=== PATIENT | female | born 2000 | race African-American/Black ===

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

== ENCOUNTER 2021-02-08 17:39 | Emergency (ER) | payer SELFPAY ==
[~2021-02-08 17:39] MED LIST: SULF1TAB24 PO
[2021-02-09] MEDS ORDERED: MAGN296S68 PO (01:14)
== END 2021-02-08 18:38 | disposition left against medical advice (07) ==
LOC: ER 17:39
DX: R10.9 Unspecified abdominal pain (principal); Z53.21 Procedure and treatment not carried out due to patient leaving prior to being seen by health care provider

== ENCOUNTER 2021-02-08 23:14 | Emergency (ER) | payer SELFPAY ==
[~2021-02-08] VITALS: Ht 158.8 cm; Wt 52.3 kg
[2021-02-09 00:18] LABS: BILIRUBIN,URINE NEGATIVE (NEG); CLARITY,URINE CLEAR; COLOR,URINE YELLOW; NITRITE,URINE NEGATIVE (NEG); PROTEIN,URINE NEGATIVE (NEG-TRACE)
[2021-02-09 00:23] LABS: BACTERIA,URINE FEW /HPF (0-FEW); RBC,URINE 0 /HPF (0-2)
--- NOTE | 2021-02-09 01:08 | PHYS DOC ---
Past Medical History Past Medical History: Other Additional Past Medical Histor: BELLS PALSY, HEART CONDITION,TONSILITIS Past Surgical History: No Surgical History Smoking Status: Current Some Day Smoker Alcohol Use: None Drug Use: None General Adult EDM: Chief Complaint: ABDOMINAL PAIN HPI: HPI: Patient is a 20 year old female presents with a chief complaint of left-sided abdominal pain. Patient states she has had this abdominal pain since Monday. Is located in the left upper quadrant. She denies any associated nausea vomiting or diarrhea. Patient states she has been constipated over the last several days did have a small bowel movement yesterday. Review of Systems: Review of Systems: Review of systems: Constitutional symptoms- No fever, no chills. Eyes- No Discharge, No Visual Loss Respiratory symptoms- No shortness of breath, No wheezing, No Dyspnea on Exertion Cardiovascular Systems; No chest pain, No Palpitations, No syncope Gastrointestinal symptoms: Positive abdominal pain, no nausea, no vomiting or diarrhea. Positive constipation Genitourinary symptoms: No dysuria. Musculoskeletal symptoms: No back pain No extremity pain. NEUROLOGICAL Symptoms: No headache, no generalized weakness; No focal Weakness Skin: No rash. Heart Score: C/O Chest Pain: N/A Risk Factors: Risk Factors: DM, Current or recent (<one month) smoker, HTN, HLP, family history of CAD, obesity. Risk Scores: Score 0 - 3: 2.5% MACE over next 6 weeks - Discharge Home Score 4 - 6: 20.3% MACE over next 6 weeks - Admit for Clinical Observation Score 7 - 10: 72.7% MACE over next 6 weeks - Early Invasive Strategies Allergies: Allergies: Allergies Coded Allergies Type Severity Reaction Last Updated Verified No Known Drug Allergies 04/01/15 No Physical Exam: PE: General: alert, no acute distress. Skin: warm, dry and intact, no erythema, no rash. HENT: bilateral external ears normal, oropharynx moist, nose normal. Head:: Normocephalic, atraumatic. Neck: Trachea midline. Eyes: EOMI, Normal conjunctiva, No drainage CARDIOVASCULAR: Regular rate and rhythm RESPIRATORY: No respiratory distress Back: Full range of motion. MUSCULOSKELETAL: Full range of motion of bilateral upper and lower extremities. GASTROINTESTINAL: Abdomen soft without rebound or guarding. NEUROLOGICAL: Alert and noted to person, place and time. No neurological deficits observed Psychiatric: Cooperative. Normal judgment Current Patient Data: Labs: Laboratory Tests Test 02/08/21 23:58 02/09/21 00:01 POC Urine HCG, Qualitative Hcg negative (Negative) Urine Collection Type Unknown Urine Color Yellow Urine Clarity Clear Urine pH 6.0 (<5.0-8.0) Urine Specific [place] 1.025 (1.000-1.030) Urine Protein Negative mg/dL (NEG-TRACE) Urine Glucose (UA) Negative mg/dL (NEG) Urine Ketones (Stick) Negative mg/dL (NEG) Urine Blood Negative (NEG) Urine Nitrite Negative (NEG) Urine Bilirubin Negative (NEG) Urine Urobilinogen Dipstick 1.0 mg/dL (0.2 mg/dL) Urine Leukocyte Esterase Negative (NEG) Urine RBC 0 /HPF (0-2) Urine WBC 1-4 /HPF (0-4) Urine Squamous Epithelial Cells Many /LPF Urine Bacteria Few /HPF (0-FEW) Urine Mucus Mod /LPF Vital Signs: Vital Signs Date Time Temp Pulse Resp B/P (MAP) Pulse Ox O2 Delivery O2 Flow Rate FiO2 02/09/21 00:03 98.2 81 16 106/53 (70) 97 Room Air 98.2 EKG: EKG: [] Radiology/Procedures: Radiology/Procedures: [] Impression: KUB nonobstructive bowel gas stool within the colon Course & Med Decision Making: Course & Med Decision Making Pertinent Labs and Imaging studies reviewed. (See chart for details) [] Dragon Disclaimer: Dragon Disclaimer: This electronic medical record was generated, in whole or in part, using a voice recognition dictation system. Departure Departure Impression: Primary Impression: Constipation Disposition: 01 HOME / SELF CARE / HOMELESS Condition: STABLE Referrals: NO PCP (PCP) Patient Instructions: Constipation, Adult Scripts Magnesium Citrate (MAGNESIUM CITRATE) 296 Ml Solution 296 ML PO ONCE, #296 ML Prov: ALYSE BHARDWAJ DO 02/09/21 ALYSE BHARDWAJ DO Feb 09, 2021 01:08
[2021-02-09] MEDS ORDERED: MAGN296S68 PO (01:14)
[2021-02-09 01:30] VITALS: BP 107/57
--- NOTE | 2021-02-09 04:02 | RAD ---
EXAM: XR ABDOMEN 1V 02/09/2021 12:32 AM CLINICAL INDICATION: Abdominal pain COMPARISON: None TECHNIQUE: AP view of the abdomen FINDINGS: Bowel gas pattern is nonobstructive. Normal volume of stool. No abnormal calcifications. N o acute osseous abnormality. IMPRESSION: No acute abnormality in the abdomen. Electronically signed by: Blanca Wilde MD (02/09/2021 4:00 AM) [facility]
== END 2021-02-09 01:48 | disposition home or self-care (01) ==
LOC: ER 23:14
DX: K59.00 Constipation, unspecified (principal); F17.200 Nicotine dependence, unspecified, uncomplicated; G51.0 Bell's palsy
CPT/HCPCS: 74018; 81001; 81025; 99284